=== PATIENT | female | born 2000 | race Two or more races ===

== ENCOUNTER 2020-05-14 11:18 | Emergency (ER) | payer OTHER ==
[~2020-05-14] VITALS: Ht 165.1 cm; Wt 150.0 kg
[2020-05-14 11:25] VITALS: BP 129/74
[2020-05-14] MEDS ORDERED: CLIN150C14 PO (11:58)
--- NOTE | 2020-05-14 12:07 | PHYS DOC ---
Past Medical History Past Medical History: No Pertinent History Past Surgical History: No Surgical History Smoking Status: Never Smoker Alcohol Use: None Drug Use: None General Adult EDM: Chief Complaint: ABSCESS HPI: HPI: Patient is a 19 year old female who presents with a lesion to her left inguinal fold. She states she is not sure how long this is been there but that it is very painful. She is not had anything like this previously. She denies any associated symptoms. She otherwise is well appearing. She has not had any drainage from it. She denies any vaginal discharge. She is currently on her period. Review of Systems: Review of Systems: General: Denies fever, chills, sweats, fatigue Eyes: Denies drainage, blurred vision HENT: Denies rhinorrhea, sore throat Respiratory: Denies cough, shortness of breath, wheezing Cardiac: Denies edema, palpitations, chest pain GI: Denies abdominal pain, N/V MSK: Denies back pain, neck pain Skin: Denies rash, jaundice Neuro: Denies headache, dizziness Psychiatric: Denies SI/HI Heart Score: Risk Factors: Risk Factors: DM, Current or recent (<one month) smoker, HTN, HLP, family history of CAD, obesity. Risk Scores: Score 0 - 3: 2.5% MACE over next 6 weeks - Discharge Home Score 4 - 6: 20.3% MACE over next 6 weeks - Admit for Clinical Observation Score 7 - 10: 72.7% MACE over next 6 weeks - Early Invasive Strategies Allergies: Allergies: Allergies Coded Allergies Type Severity Reaction Last Updated Verified No Known Drug Allergies 11/16/14 No Physical Exam: PE: Constitutional: Well developed, well nourished, Cooperative, NAD, non-toxic appearing HEENT: Normocephalic, atraumatic, oropharynx moist, EOMI, PERRL, no drainage from eyes, normal conjunctiva Neck: Supple, normal range of motion, no stridor Cardiovascular: RRR, 2+ radial pulses bilaterally, no edema Respiratory: CTA bilaterally, no respiratory distress, no wheezing/crackles Abdomen: Soft, nontender, nondistended, no masses Skin: Warm, dry, intact. L inguinal fold: 1x4 cm indurated, erythemateous area c /w abscess Extremities: No obvious deformities Neurologic: Alert and Oriented x3, motor and sensory function grossly normal, no focal deficits Psychologic: Normal affect, normal judgment, normal mood. No SI/HI Current Patient Data: Vital Signs: Vital Signs Date Time Temp Pulse Resp B/P (MAP) Pulse Ox O2 Delivery O2 Flow Rate FiO2 05/14/20 11:25 98.3 104 20 129/74 (92) 99 Room Air 98.3 EKG: EKG: [] Radiology/Procedures: Radiology/Procedures: [] Course & Med Decision Making: Course & Med Decision Making Pertinent Labs and Imaging studies reviewed. (See chart for details) Patient is 19-year-old female who presents to the emergency room complaining of a lesion on her inner thigh. Patient appears to have a small abscess. There is some mild induration. I recommended to her incision and drainage. She does not want this at this time. She would like to try antibiotics first. I have discussed with her that it may get worse and she may have to come back for drainage. She would like to try antibiotics before the drainage is done. Patient states there is no chance she could be . She denies any allergies to medications. She will be placed on clindamycin and will return if the lesion gets worse. Dragon Disclaimer: [employer] Disclaimer: This electronic medical record was generated, in whole or in part, using a voice recognition dictation system. Departure Departure Impression: Primary Impression: Abscess Disposition: 01 HOME, SELF-CARE Condition: STABLE Patient Instructions: Abscess, [id number] Scripts Clindamycin Hcl (CLINDAMYCIN HCL) 150 Mg Capsule 1 CAP PO QID, #28 CAP Prov: AMADA LAU MD 05/14/20 Justicifation of Admission Dx: Justifications for Admission: Justification of Admission Dx: No AMADA LAU MD May 14, 2020 12:07
== END 2020-05-14 12:07 | disposition home or self-care (01) ==
LOC: ER 11:18
DX: L02.416 Cutaneous abscess of left lower limb (principal)
CPT/HCPCS: 99283

== ENCOUNTER 2020-10-08 16:13 | Emergency (ER) | payer OTHER ==
[~2020-10-08] VITALS: Ht 167.6 cm; Wt 77.0 kg
[~2020-10-08 16:13] MED LIST: CLIN150C14 PO
--- NOTE | 2020-10-08 17:11 | PHYS DOC ---
Past Medical History Past Medical History: No Pertinent History Past Surgical History: No Surgical History Smoking Status: Never Smoker Alcohol Use: None Drug Use: None General Adult EDM: Chief Complaint: FEVER HPI: HPI: Patient is a 19 year old female who presents to the ED today with fever and body aches that began today. Patient denies any cough or congestion. Reports COVID-19 exposure. Review of Systems: Review of Systems: Constitutional: Reports fever and body aches Eyes: Denies change in visual acuity. [] HENT: Denies nasal congestion or sore throat. [] Respiratory: Denies cough or shortness of breath. [] Cardiovascular: Denies chest pain or edema. [] GI: Denies abdominal pain, nausea, vomiting, bloody stools or diarrhea. [] : Denies dysuria. [] Musculoskeletal: Denies back pain or joint pain. [] Integument: Denies rash. [] Neurologic: Denies headache, focal weakness or sensory changes. [] Endocrine: Denies polyuria or polydipsia. [] Lymphatic: Denies swollen glands. [] Psychiatric: Denies depression or anxiety. [] Heart Score: Risk Factors: Risk Factors: DM, Current or recent (<one month) smoker, HTN, HLP, family history of CAD, obesity. Risk Scores: Score 0 - 3: 2.5% MACE over next 6 weeks - Discharge Home Score 4 - 6: 20.3% MACE over next 6 weeks - Admit for Clinical Observation Score 7 - 10: 72.7% MACE over next 6 weeks - Early Invasive Strategies Current Medications: Current Medications Medications (Trade) Dose Ordered Sig/[facility] Start Time Stop Time Status Last Admin Dose Admin Acetaminophen (Tylenol) 1,000 mg 1X ONCE 10/08/20 17:15 10/08/20 17:16 Allergies: Allergies: Allergies Coded Allergies Type Severity Reaction Last Updated Verified No Known Drug Allergies 11/16/14 No Physical Exam: PE: Constitutional: Well developed, well nourished, no acute distress, non-toxic appearance. [] HENT: Normocephalic, atraumatic, bilateral external ears normal, oropharynx moist, no oral exudates, nose normal. [] Eyes: PERRLA, EOMI, conjunctiva normal, no discharge. [] Neck: Normal range of motion, no tenderness, supple, no stridor. [] Cardiovascular:Heart rate regular rhythm, no murmur [] Lungs & Thorax: Bilateral breath sounds clear to auscultation [] Abdomen: Bowel sounds normal, soft, no tenderness, no masses, no pulsatile masses. [] Skin: Warm, dry, no erythema, no rash. [] Back: No tenderness, no CVA tenderness. [] Extremities: No tenderness, no cyanosis, no clubbing, ROM intact, no edema. [] Neurologic: Alert and oriented X 3, normal motor function, normal sensory function, no focal deficits noted. [] Psychologic: Affect normal, judgement normal, mood normal. [] EKG: EKG: [] Radiology/Procedures: Radiology/Procedures: []PROCEDURE: CHEST PA & LATERAL EXAM: CHEST PA LATERAL 10/08/2020 4:57 PM CLINICAL INDICATION: Fever COMPARISON: Chest radiograph 10/25/2015 TECHNIQUE: PA and lateral views of the chest FINDINGS: The heart and mediastinum are normal. Lungs are well-expanded and clear. No consolidation, pleural effusion, or pneumothorax. Pulmonary vascularity is normal. The thoracic skeleton is intact. IMPRESSION: Normal chest. Electronically signed by: Chelsea Mccullough MD (10/08/2020 5:43 PM) [id number] DICTATED and SIGNED BY: CHELSEA MCCULLOUGH MD DATE: 10/08/20 174 Course & Med Decision Making: Course & Med Decision Making Pertinent Labs and Imaging studies reviewed. (See chart for details) This is a 19-year-old female patient presenting to the ED today with fever and body aches that began today. Temperature 100.4 on arrival to the ED. Chest x- ray interpreted by radiologist as negative for any acute findings. I did order that COVID-19 swab on patient, she states she was tested yesterday for COVID-19 and does not have results and she came to the ED hoping to get a rapid test. Informed patient we do not do rapid COVID-19 test unless patients meet criteria e.g. surgical patients. She was discharged to home. Supportive care measures recommended. Dragon Disclaimer: Dragjennifer Disclaimer: This electronic medical record was generated, in whole or in part, using a voice recognition dictation system. Departure Departure Impression: Primary Impression: Fever Qualified Codes: R50.9 - Fever, unspecified Additional Impression: Person under investigation for COVID-19 Disposition: 01 DC HOME SELF CARE/HOMELESS Condition: STABLE Referrals: NO PCP (PCP) Patient Instructions: Fever, Adult, [id number] Additional Instructions: You were evaluated in the emergency room for fever. Your chest x-ray is negative for any acute findings. Please contact the place you did your COVID-19 test and check your results. Please take Tylenol/Motrin for pain or fever. Push fluids, maintain good and hygiene, wear your mask. Quarantine yourself until you get your covid test results. ADRIAN HERNANDEZ [employer]ABLE LEAD Oct 08, 2020 17:11
[2020-10-08 17:14] VITALS: BP 120/60
[2020-10-08] MEDS ORDERED: ACETAMINOPHEN 500 MG TABLET PO ONE (17:15)
[2020-10-08 17:27] LABS: BILIRUBIN,URINE NEGATIVE (NEG); CLARITY,URINE CLOUDY; COLOR,URINE YELLOW; NITRITE,URINE NEGATIVE (NEG); PROTEIN,URINE 30 mg/dL (NEG-TRACE); UROBILINOGEN,URINE 0.2 mg/dL (0.2 mg/dL)
--- NOTE | 2020-10-08 17:46 | RAD ---
EXAM: CHEST PA LATERAL 10/08/2020 4:57 PM CLINICAL INDICATION: Fever COMPARISON: Chest radiograph 10/25/2015 TECHNIQUE: PA and lateral views of the chest FINDINGS: The heart and mediastinum are normal. Lungs are well-expanded and clear. No consolidation, pleural effusion, or pneumothorax. Pulmonary vascularity is normal. The thoracic skeleton is intact. IMPRESSION: Normal chest. Electronically signed by: Chelsea Mccullough MD (10/08/2020 5:43 PM) [id number]
[2020-10-08 17:52] LABS: BACTERIA,URINE MODERATE /HPF (0-FEW); WBC,URINE >40 /HPF (0-4)
[2020-10-08 17:53] LABS: AMORPHOUS SEDIMENT,UR PRESENT /HPF; HYALINE CASTS, URINE OCCASIONAL /HPF
== END 2020-10-08 18:32 | disposition home or self-care (01) ==
LOC: ER 16:13
DX: R50.9 Fever, unspecified (principal); M79.10 Myalgia, unspecified site
CPT/HCPCS: 71046; 81001; 81025; 87086; 99284

== ENCOUNTER 2021-03-01 15:47 | Emergency (ER) | payer OTHER ==
[~2021-03-01] VITALS: Ht 157.5 cm; Wt 83.9 kg
[~2021-03-01 15:47] MED LIST changes: +AZIT250T6 PO; -CLIN150C14 PO; +CLIN150C15 PO
[2021-03-01 17:25] VITALS: BP 120/71
[2021-03-01] MEDS ORDERED: MUPI22OI2 TP (18:56)
--- NOTE | 2021-03-01 18:56 | ED.ADGEN ---
Past Medical History Past Medical History: No Pertinent History Past Surgical History: No Surgical History Smoking Status: Never Smoker Alcohol Use: None Drug Use: None General Adult EDM: Chief Complaint: SKIN RASH/ABSCESS HPI: HPI: Patient is a 20 year old female who presents emergency department with complaints of a rash to her chest for the last week. Patient denies any discharge or bleeding from the sites. She states at first they were itchy and she scratched them and then more of the bumps.. She denies any fever, cough, shortness of breath, nausea, vomiting, diarrhea, body aches, fatigue. Patient denies any new medications, detergents, foods, or environmental exposures. She currently denies any pain. Review of Systems: Review of Systems: Complete ROS is negative unless otherwise noted in HPI. Allergies: Allergies: Allergies Coded Allergies Type Severity Reaction Last Updated Verified No Known Drug Allergies 11/16/14 No Physical Exam: PE: See Above Constitutional: Well developed, well nourished, no acute distress, non-toxic ap pearance. [] HENT: Normocephalic, atraumatic, bilateral external ears normal, nose normal. [] Eyes: PERRLA, EOMI, conjunctiva normal, no discharge. [] Neck: Normal range of motion, no stridor. [] Cardiovascular:Heart rate regular rhythm Lungs & Thorax: Respirations even and unlabored, no retractions, no respiratory distress Skin: Warm, dry; scattered pustular rash with mild surrounding erythema consistent with folliculitis/acne to patient's chest. Extremities: No cyanosis, ROM intact, no edema. [] Neurologic: Alert and oriented X 3, normal motor, normal sensory, no focal deficits noted. [] Psychologic: Affect normal, judgement normal, mood normal. [] Current Patient Data: Vital Signs: Vital Signs Date Time Temp Pulse Resp B/P (MAP) Pulse Ox O2 Delivery O2 Flow Rate FiO2 03/01/21 17:25 98.4 82 20 120/71 (87) 100 Room Air 98.4 EKG: EKG: [] Heart Score: C/O Chest Pain: No Risk Scores: Score 0 - 3: 2.5% MACE over next 6 weeks - Discharge Home Score 4 - 6: 20.3% MACE over next 6 weeks - Admit for Clinical Observation Score 7 - 10: 72.7% MACE over next 6 weeks - Early Invasive Strategies Radiology/Procedures: Radiology/Procedures: [] Course & Med Decision Making: Course & Med Decision Making Pertinent Labs and Imaging studies reviewed. (See chart for details) 20-year-old female presented emergency department for evaluation of a rash today. Physical exam is concerning for folliculitis/acne. Prescription for mupirocin was written. I encouraged the patient to shower daily and to use a new washcloth each day. I encouraged her to follow-up with her primary care doctor or a conveyor system dispatcher if symptoms persist, return to the ER symptoms worsen or fever develop. Patient verbalized an understanding of home care, medications, follow-up, and return to ED instructions and was in agreement with the plan of care. [] Dragon Disclaimer: Dragon Disclaimer: This electronic medical record was generated, in whole or in part, using a voice recognition dictation system. Departure Departure Impression: Primary Impression: Folliculitis Disposition: 01 DC HOME SELF CARE/HOMELESS Condition: STABLE Referrals: UNKNOWN PCP NAME (PCP) Patient Instructions: Folliculitis Additional Instructions: Fill the prescription and use it as directed. Follow-up with your primary care doctor in the next week, return to the ER if symptoms worsen or fever develop develops. Scripts Mupirocin (MUPIROCIN OINTMENT) 22 Gm Oint...g. 1 OBDULIO TP BID for WOUND CARE for 7 Days, #1 TUBE 0 Refills Prov: FIDENCIO MARES APRN 03/01/21 FIDENCIO MARES APRN Mar 01, 2021 18:56
== END 2021-03-01 19:20 | disposition home or self-care (01) ==
LOC: ER 15:47
DX: L73.9 Follicular disorder, unspecified (principal); R21 Rash and other nonspecific skin eruption; L08.0 Pyoderma; L53.9 Erythematous condition, unspecified
CPT/HCPCS: 99283